=== PATIENT | female | born 1970 | race Caucasian/White ===

== ENCOUNTER 2017-07-10 00:37 | Emergency (ER) | payer OTHER ==
[~2017-07-10] VITALS: Ht 180.3 cm; Wt 117.9 kg
[2017-07-10] MEDS ORDERED: TRIAMTERENE-HC1 EAC3 PO (02:15)
[2017-07-10] MEDS ORDERED: PERCOCET 5-3251 EACH PO (02:42)
== END 2017-07-10 03:11 | disposition home or self-care (01) ==
LOC: ED 00:37
DX: N13.2 Hydronephrosis with renal and ureteral calculous obstruction (principal); Z90.712 Acquired absence of cervix with remaining uterus; Z79.899 Other long term (current) drug therapy
CPT/HCPCS: 74176; 81001; 96374; 96375; 99284; J1170; J1885; J2405